=== PATIENT | male | born 2000 | race American Indian/Alaskan Native ===

== ENCOUNTER 2019-03-12 17:40 | Emergency (ER) | payer SELFPAY ==
[2019-03-12] MEDS ORDERED: NACL 0.9% 1000 ML 1,000 ML ONE (17:49)
[2019-03-12] MEDS ORDERED: NACL 0.9% 1000 ML 1,000 ML IV ONE (17:50)
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
[2019-03-12] MEDS ORDERED: ANCEF/NS 1 GM/50 ML 1 GM/50 ML BAG IV ONE (18:01)
[2019-03-12] MEDS ORDERED: DILAUDID IV ONE ×2 (18:01→19:12)
[2019-03-12] MEDS ORDERED: BOOSTRIX IM ONE (18:01)
[2019-03-12 18:11] LABS: Hematocrit 44.1 % (35.5-45.6); Mean Corpuscular HGB Conc 34 % (32-34); Mean Corpuscular Volume 86 fl (84-94); Platelet Count 294 K/mm3 (140-440); Red Blood Count 5.11 M/mm3 (3.65-5.03); Red Cell Distribution Width 12.6 % (13.2-15.2)
[2019-03-12 18:17] LABS: Alanine Aminotransferase 19 units/L (7-56); Albumin 4.2 g/dL (3.9-5); BUN/Creatinine Ratio 13; Blood Urea Nitrogen 12 mg/dL (9-20); Calcium 9.1 mg/dL (8.4-10.2); Hemolysis Index 8
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
[2019-03-12 19:30] VITALS: BP 182/65
== END 2019-03-12 19:43 | disposition other institution (70) ==
LOC: ED 17:40
DX: S71.132A Puncture wound without foreign body, left thigh, initial encounter (principal); S81.832A Puncture wound without foreign body, left lower leg, initial encounter; S51.832A Puncture wound without foreign body of left forearm, initial encounter; X95.9XXA Assault by unspecified firearm discharge, initial encounter; Y93.89 Activity, other specified; Y92.89 Other specified places as the place of occurrence of the external cause; Y99.8 Other external cause status
CPT/HCPCS: 36415; 73090; 73552; 73590; 80053; 85027; 86850; 86900; 86901; 90471; 90715; 96365; 96375; 96376; 99291; J0690; J1170; J7030

== ENCOUNTER 2019-04-04 16:53 | Emergency (ER) | payer SELFPAY ==
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
[2019-04-04 17:23] VITALS: BP 141/78
--- NOTE | 2019-04-04 18:12 | XRay Report ---
LEFT FEMUR 2 VIEW(S) INDICATION / CLINICAL INFORMATION: left thigh pain, COMPARISON: None available. FINDINGS: BONES / JOINT(S): No acute fracture or subluxation. No significant arthritis. SOFT TISSUES: Tiny metallic density in the posterolateral mid left thigh. ADDITIONAL FINDINGS: None. Signer Name: Claudia Harris MD Signed: 04/04/2019 6:08 PM Workstation Name: [id number]
[2019-04-04] MEDS ORDERED: IBUPROFEN PO ONE (20:12)
[2019-04-04] MEDS ORDERED: TYLENOL PO ONE (20:12)
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
== END 2019-04-04 21:07 | disposition home or self-care (01) ==
LOC: ED 16:53
DX: S71.132D Puncture wound without foreign body, left thigh, subsequent encounter (principal); S51.832D Puncture wound without foreign body of left forearm, subsequent encounter; W34.00XD Accidental discharge from unspecified firearms or gun, subsequent encounter; Y92.89 Other specified places as the place of occurrence of the external cause

== ENCOUNTER 2022-03-08 12:24 | Emergency (ER) | payer SELFPAY ==
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
[2022-03-08 13:23] VITALS: BP 135/85
== END 2022-03-08 18:54 | disposition home or self-care (01) ==
LOC: ED 12:24
DX: F41.9 Anxiety disorder, unspecified (principal); F17.200 Nicotine dependence, unspecified, uncomplicated; F12.90 Cannabis use, unspecified, uncomplicated; Z79.899 Other long term (current) drug therapy
CPT/HCPCS: 99282